=== PATIENT | male | born 1995 | race Caucasian/White ===

== ENCOUNTER 2023-06-09 05:03 | Emergency (ER) | payer MEDICAID, OTHER ==
[~2023-06-09] VITALS: Ht 170.2 cm; Wt 80.3 kg
[2023-06-09] MEDS ORDERED: TDAP [DIPH/PERTUSSIS/TET] 0.5 ML VIAL IM ONE ×2 (06:39→07:00)
[2023-06-09] MEDS ORDERED: BACI/NEOM/POLY B OINT PKT 1 UDPKT PACKET ONE (06:42)
[2023-06-09] MEDS ORDERED: CEPH500C2 PO (06:55)
[2023-06-09] MEDS ORDERED: BACI/NEOM/POLY B OINT PKT 1 UDPKT PACKET TP ONE (07:00)
[2023-06-09 07:06] VITALS: BP 127/80; TEMP 97.9; O2SAT 100
== END 2023-06-09 07:06 | disposition home or self-care (01) ==
LOC: ER 05:06
DX: S61.210A Laceration without foreign body of right index finger without damage to nail, initial encounter (principal); W25.XXXA Contact with sharp glass, initial encounter; Y93.89 Activity, other specified; Y92.89 Other specified places as the place of occurrence of the external cause; Y99.8 Other external cause status
CPT/HCPCS: 90715